=== PATIENT | male | born 1995 | race Hispanic/Latino ===

== ENCOUNTER 2018-01-10 07:47 | Emergency (ER) | payer OTHER | END 2018-01-10 08:03 | disposition left against medical advice (07) | LOC: ERS 07:47 | DX: S00.511A Abrasion of lip, initial encounter (principal); Y04.2XXA Assault by strike against or bumped into by another person, initial encounter | CPT/HCPCS: 99283 ==

== ENCOUNTER 2018-01-10 08:14 | Emergency (ER) | payer OTHER, SELFPAY ==
[2018-01-10] MEDS ORDERED: Adacel (T-DAP) 0.5 ML VIAL ONE (09:06)
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
[2018-01-10] MEDS ORDERED: Ketorolac Tromethamine 30 MG/ML VIAL ONE (09:25)
[2018-01-10] MEDS ORDERED: Bacitracin Zinc 1 Packet ONE (09:31)
== END 2018-01-10 09:35 | disposition home or self-care (01) ==
LOC: ERS 08:14
DX: S00.83XA Contusion of other part of head, initial encounter (principal); S10.93XA Contusion of unspecified part of neck, initial encounter; S00.511A Abrasion of lip, initial encounter; Z23 Encounter for immunization; Y04.2XXA Assault by strike against or bumped into by another person, initial encounter
CPT/HCPCS: 70486; 90471; 90715; 96372; J1885

== ENCOUNTER 2018-09-29 08:52 | Emergency (ER) | payer SELFPAY ==
[2018-09-29] MEDS ORDERED: Ondansetron PF 4 MG/2 ML Vial ONE (09:04)
[2018-09-29 09:29] LABS: Lavender RECEIVED; Red RECEIVED
[2018-09-29 09:36] LABS: Hemoglobin 13.4 g/dL (14.0-18.0); Mean Corpuscular HGB CONC 32.7 g/dL (32.0-36.0); Mean Corpuscular Hemoglobin 31.4 pg (27.0-31.0); Mean Corpuscular Volume 96.1 fL (78.0-98.0); Mean Platelet Volume 8.5 fL (7.4-10.4); Platelet Count 249 thou/uL (130-400); Red Blood Cell (RBC) Count 4.27 mill/uL (4.70-6.10); White Blood Cell (WBC) Count 29.9 thou/uL (4.8-10.8)
[2018-09-29 09:54] LABS: Band 9 % (5-11); Lymphocytes 8 % (21-51); MDiff Complete? YES; Monocytes 6 % (0-10); Neutrophil 75 % (42-75); Platelet Morphology Comment Appears Adequate; Polychromasia SLIGHT = 2-3 cells (100X) (0-2/hpf); Reactive Lymphocytes 1 % (0-10)
[2018-09-29 09:56] LABS: ALT (SGPT) 12 U/L (8-55); AST (SGOT) 24 U/L (5-34); Albumin 4.6 g/dL (3.5-5.0); Alkaline Phosphatase 105 U/L (40-150); Anion Gap 21 mmol/L (10-20); BUN (Urea Nitrogen) 11 mg/dL (8.9-20.6); Bilirubin, Total 0.2 mg/dL (0.2-1.2); Calc. Creatinine Clearance 0 mL/min (70-130); Calcium 9.1 mg/dL (7.8-10.44); Carbon Dioxide 13 mmol/L (22-29); Chloride 106 mmol/L (98-107); Estimated GFR-MDRD Greater than 90; Globulin 3.2 g/dL (2.4-3.5); Glucose 107 mg/dL (70-105); Protein, Total 7.8 g/dL (6.0-8.3); Sodium 136 mmol/L (136-145)
[2018-09-29 11:14] LABS: CK (CPK) 639 U/L (30-200); CRP (Inflammatory) Less than 0.50 mg/dL (= or < 0.5)
[2018-09-29 12:03] LABS: Bilirubin Negative (Negative); Blood, Urine Trace (Negative); Clarity CLEAR (Clear); Glucose, Urine (Dipstick) Negative (Negative); Leukocyte Negative (Negative); Nitrite Negative (Negative); Protein, Urine (Dipstick) 30 mg/dL (Neg-Trace); Specific Gravity, Urine 1.005 (1.002-1.036); Urobilinogen 0.2 mg/dL (0.2-1.0); pH, Urine 5.5 (5.0-9.0)
[2018-09-29 12:05] LABS: Bacteria/HPF None Seen HPF (None Seen); Hyaline Casts/LPF 0-3 HYALINE CAST LPF (0-3 Hyaline); RBC/HPF 0-3 HPF (0-3); Squamous Epithelial 0-3 HPF (0-3); WBC/HPF 0-3 HPF (0-3)
== END 2018-09-29 11:47 | disposition home or self-care (01) ==
LOC: ERS 08:52
DX: F19.10 Other psychoactive substance abuse, uncomplicated (principal); F17.210 Nicotine dependence, cigarettes, uncomplicated
CPT/HCPCS: 80053; 81003; 81015; 82550; 85025; 86140; 93005; 96361; 96374; J2405

== ENCOUNTER 2019-03-08 10:48 | Emergency (ER) | payer SELFPAY | END 2019-03-08 12:11 | disposition home or self-care (01) | LOC: ERS 10:48 | DX: R55 Syncope and collapse (principal); F17.210 Nicotine dependence, cigarettes, uncomplicated | CPT/HCPCS: 93005 ==

== ENCOUNTER 2019-03-08 23:40 | Emergency (ER) | payer SELFPAY | END 2019-03-09 00:11 | LOC: ERS 23:40 | DX: F12.10 Cannabis abuse, uncomplicated (principal); F17.210 Nicotine dependence, cigarettes, uncomplicated; Z71.6 Tobacco abuse counseling | CPT/HCPCS: 93005; 99406 ==

== ENCOUNTER 2019-03-31 19:34 | Emergency (ER) | payer SELFPAY | END 2019-03-31 20:27 | disposition left against medical advice (07) | LOC: ERS 19:34 | DX: Z53.21 Procedure and treatment not carried out due to patient leaving prior to being seen by health care provider (principal) ==

== ENCOUNTER 2019-08-02 19:08 | Emergency (ER) | payer SELFPAY | END 2019-08-02 20:19 | disposition left against medical advice (07) | LOC: ERS 19:08 | DX: Z53.21 Procedure and treatment not carried out due to patient leaving prior to being seen by health care provider (principal) ==

== ENCOUNTER 2019-11-20 20:30 | Emergency (ER) | payer SELFPAY ==
[2019-11-20] MEDS ORDERED: Ondansetron ODT 8 MG TAB ONE (21:13)
== END 2019-11-20 21:15 ==
LOC: ERS 20:30
DX: F19.10 Other psychoactive substance abuse, uncomplicated (principal); R11.2 Nausea with vomiting, unspecified; F17.200 Nicotine dependence, unspecified, uncomplicated
CPT/HCPCS: 99283; Q0162